=== PATIENT | male | born 1995 | race Caucasian/White ===

== ENCOUNTER 2022-11-21 11:43 | Emergency (ER) | payer OTHER, SELFPAY ==
--- NOTE | ~2022-11-21 | XR_ITS ---
[XR ribs RT 2V ] INDICATION: Right rib pain TECHNIQUE: Frontal projection of the upper right ribs, frontal projection of the lower right ribs, ob lique projection of all the right ribs, frontal inspiratory chest x-ray for interpretation. FINDINGS: There is a possible nondisplaced right ninth rib fracture. There are no soft tissue abnorma lity seen. The lungs are clear. No pneumothorax. IMPRESSION: 1: Possible nondisplaced right ninth rib fracture seen on one view only. Reviewed, dictated and finalized at location L.
--- NOTE | ~2022-11-21 | XR_ITS ---
EXAMINATION: XR chest 2V DATE: 11/21/2022 13:26 INDICATION: Productive cough. TECHNIQUE: Frontal and lateral views of the chest were obtained. COMPARISON: Chest 2 views 05/09/2016 FINDINGS: There is no pneumonia, pleural effusion, or pneumothorax. The heart size is normal. IMPRESSION: 1. No acute cardiopulmonary disease. Reviewed, dictated and finalized at location A.
[2022-11-21 11:53] VITALS: BP 126/76; PULSE 71; RESP 16; TEMP 37.1; O2SAT 99
--- NOTE | 2022-11-21 12:44 | ED.GENADULT ---
HPI - General Adult General Chief complaint: Upper Respiratory Infection Stated complaint: Cough/Right Side Body Pain Source: patient Mode of arrival: ambulatory Limitations: no limitations History of Present Illness HPI narrative: Patient presents for evaluation of right rib pain. Patient indicates that he hurt himself at work approximately 4 days ago. 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 He states he has experienced constant pain in the right anterior lower ribs since his injury at work. He rates his pain 8/10 severity, worse with deep inspiration. Around the same time of his injury he began experiencing sick symptoms which include nausea, sinus congestion, drainage, productive cough of green sputum and sore throat. No fever, chills, diarrhea. A coworker has similar symptoms. He does use an electronic cigarette. He has been taking dayquil for his symptoms. Related Data Allergies Allergy/AdvReac Type Severity Reaction Status Date / Time Sulfa (Sulfonamide Allergy Unknown Unknown Verified 11/21/22 12:17 Antibiotics) Review of Systems Review of Systems: CONSTITUTIONAL: Denies fever, chills, or sweats. EYES: Denies visual changes, redness, or discharge. ENT: Reports sinus congestion and sore throat CARDIOVASCULAR: Denies chest pain, palpitations, or edema. RESPIRATORY: Reports cough. Denies SOB. GASTROINTESTINAL: Reports nausea. Denies abdominal pain, vomiting, or diarrhea. GENITOURINARY: Denies dysuria or hematuria. SKIN: Denies rash or itching. MUSCULOSKELETAL:Reports pain in right lower anterior ribs. Denies back pain NEUROLOGIC: Denies headache, numbness, dizziness, or weakness. PSYCHIATRIC: Denies anxiety or depression. [facility] Past Medical History Medical History (Updated 11/21/22 @ 13:56 by DONTE Fraser, BERENICE) No pertinent past medical history Rib fracture Surgical History Surgical History No pertinent past surgical history Family History Family History Father Hypertension Grandparent Hypertension Family history of malignant neoplasm of breast Mother Family history of malignant neoplasm of breast in first degree relative Social History Social History Smoking status: Current every day smoker Tobacco type: e-cigarettes/vaping Substance use: current Substance use type: marijuana Living arrangements: alone Additional occupation/education comments: Works at [employer] Gender identity (if verbalized by the patient): Male Spiritual care concerns: No Exam Narrative: GENERAL: Well-appearing, well-nourished, and in no acute distress. HEAD: Normocephalic, atraumatic. EYES: PERRLA and EOMI. ENT: Nares clear, no rhinorrhea or epistaxis. Mucous membranes moist. Oropharynx without tonsillar hypertrophy exudate or other lesions. Bilateral TMs pearly campos nonbulging NECK: Supple. No adenopathy or masses. No carotid bruits or JVD CHEST: Clear to auscultation. No respiratory distress. No wheezes rales or rhonchi. There is tenderness over right lower anterior ribs. HEART: Regular rate and rhythm. No murmur heard. Normal peripheral pulses. ABDOMEN: Soft, nontender, nondistended, normal active bowel sounds. EXTREMITIES: Normal range of motion. No edema. SKIN: Warm, dry, no rash. NEURO: No focal deficits. Alert and oriented x3. PSYCH: Normal mood and affect. Course Course Emergency Course: This is a 27-year-old male who presented for evaluation of a rib injury. He has evidence of a rib fracture on the right side. No evidence of pneumonia. COVID and influenza were negative. Advised on pulmonary toilet. D/C with incentive spirometer. Do not smoke. Hydrocodone for pain. Follow-up with primary provider. Go to the emergency department for w
== END 2022-11-21 14:06 | disposition home or self-care (01) ==
LOC: EXPCOLL 11:46
PROVIDERS: Emergency Provider Nurse Practitioner
DX: S22.31XA Fracture of one rib, right side, initial encounter for closed fracture (principal); B34.9 Viral infection, unspecified; F17.219 Nicotine dependence, cigarettes, with unspecified nicotine-induced disorders; Z20.822 Contact with and (suspected) exposure to COVID-19; W22.09XA Striking against other stationary object, initial encounter; Y92.512 Supermarket, store or market as the place of occurrence of the external cause; Y99.0 Civilian activity done for income or pay
CPT/HCPCS: 71046; 71100; 87426; 87804; 99213; C9803; G0463

== ENCOUNTER 2022-12-14 10:26 | Emergency (ER) | payer OTHER, SELFPAY ==
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
[2022-12-14 10:51] VITALS: BP 135/78; PULSE 82; RESP 16; TEMP 36.9; O2SAT 100
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
[2022-12-14 12:39] LABS: Appearance Urine Clear (Clear); Bilirubin Urine Negative (Negative); Blood Urine 2+ (Negative); Color Urine Yellow (Yellow); Glucose Urine UA Negative (Negative); Ketones Urine Negative (Negative); Leukocyte Esterase Ur Negative LEU/UL (Negative); Nitrate Urine Negative (Negative); Protein Urine Trace mg/dL (Negative); Specific Grav Ur >= 1.030 (1.001-1.035); Urobilinogen Urine 0.2 mg/dL (<2.0); pH Urine 5.5 (5.0-9.0)
[2022-12-14 12:44] LABS: Bacteria Urine None Seen /hpf; Non Pathogenic Casts 0-2; RBC Urine 0-2 /hpf (0-2); Squamous Epithelial Cell Urine None seen /hpf (Few); WBC Urine 0-5 /hpf
[2022-12-14 12:53] LABS: Basophils Percent Auto 0.2 % (0.2-1.2); Eosinophils Percent Auto 0.1 % (0-4.4); Hematocrit 44.4 % (42.0-52.0); Hemoglobin 14.8 g/dL (14.0-18.0); Immature Granulocyte Absolute 0.05 K/mm3 (0.00-0.031); Immature Granulocyte Percent A 0.6 % (0-0.5); Lymphocytes Percent Auto 10.2 % (18.3-44.2); Mean Corpuscular HGB Conc 33.3 g/dl (32-36); Mean Corpuscular Hemoglobin 29.1 pg (26-34); Mean Corpuscular Volume 87.2 fl (80-100); Mean Platelet Volume 10.1 fl (7.4-10.4); Monocytes Absolute Auto 0.5 K/mm3 (0.1-0.6); Monocytes Percent Auto 5.9 % (2.6-8.5); Neutrophils Absolute Auto 7.4 K/mm3 (1.3-6.7); Platelet Count Result 198 k/mm3 (150-375); Red Blood Count 5.09 M/mm3 (4.6-6.20); Red Cell Distribution Width 12.5 % (11.5-14.5); White Blood Count 8.9 K/mm3 (4.5-10.0)
[2022-12-14 13:01] LABS: Add Urine Microscopic? YES
[2022-12-14 13:03] LABS: Alanine Aminotransferase 38 U/L (6-50); Albumin Level 4.7 g/dL (3.5-5.1); Alkaline Phosphatase 90 U/L (38-126); Anion Gap 8 mmol/L (8-16); Aspartate Amino Transferase 31 U/L (17-59); Bilirubin,Total 0.7 mg/dL (0.2-1.3); Blood Urea Nitrogen 17 mg/dL (9-20); Calcium 9.2 mg/dL (8.4-10.2); Carbon Dioxide 24 mmol/L (22-30); Chloride 105 mmol/L (98-107); Estimated CRCL calculation 270 ml/min; Estimated Glomerular Filt Rate > 60; Glucose 102 mg/dL (65-110); Sodium 137 mmol/L (137-145)
--- NOTE | 2022-12-14 13:24 | PC.NURSE ---
pt taken to CT at this time
--- NOTE | 2022-12-14 13:39 | PC.NURSE ---
pt returned to room 21 at this time
[2022-12-14 15:09] VITALS: BP 132/72; PULSE 82; RESP 18; O2SAT 100
== END 2022-12-14 15:10 | disposition home or self-care (01) ==
PROVIDERS: Emergency Provider Student in an Organized Health Care Education/Training Program
DX: S39.012A Strain of muscle, fascia and tendon of lower back, initial encounter (principal); F17.290 Nicotine dependence, other tobacco product, uncomplicated; V47.5XXA Car driver injured in collision with fixed or stationary object in traffic accident, initial encounter
CPT/HCPCS: 36415; 70498; 71260; 72125; 74177; 80053; 81001; 85025; 99284; Q9967